=== PATIENT | male | born 1945 | race Caucasian/White ===

== ENCOUNTER 2017-01-15 15:00 | Emergency (ER) | payer MEDICARE ==
[~2017-01-15] VITALS: Ht 175.3 cm; Wt 67.1 kg
[~2017-01-15 15:00] MED LIST: ACET325T9 PO; ASPI81TA2 PO; CARV12.52 PO; DIGO125T PO; FINA5TAB4 PO; LISI-338 PO; LOVA40TA2 PO; OMEP40CA5 PO; SPIR25TA3 PO; TRAM50TA PO; WARF5TAB7 PO
[2017-01-15] MEDS ORDERED: IV NORMAL SALINE 1000ML BAG 1,000 ML IV SCH (15:38)
[2017-01-15] MEDS ORDERED: FAMOTIDINE 20 MG/2 ML VIAL IVP ONE (15:45)
[2017-01-15] MEDS ORDERED: ONDANSETRON PF 4 MG/2 ML VIAL. IV ONE (15:45)
[2017-01-15 16:10] LABS: BASO % 0 % (0-3); EOS % 3 % (0-3); HEMATOCRIT 42.2 % (39.0-53.0); HEMOGLOBIN 13.5 g/dL (13.0-17.5); LYMPH # 1.1 x10^3/uL (1.0-4.8); LYMPH % 14 % (24-48); MEAN CORPUSCULAR HEMOGLOBIN 28 pg (25-35); MEAN CORPUSCULAR HGB CONC 32 g/dL (31-37); MEAN CORPUSCULAR VOLUME 88 fL (79-100); MONO % 13 % (0-9); NEUT % 70 % (31-73); PLATELET COUNT 240 x10^3/uL (140-400); RED BLOOD COUNT 4.79 x10^6/uL (4.30-5.70); RED CELL DISTRIBUTION WIDTH 14.2 % (11.5-14.5); WHITE BLOOD COUNT 8.4 x10^3/uL (4.0-11.0)
[2017-01-15 16:20] LABS: INR 2.8 (0.8-1.1); PROTHROMBIN TIME PATIENT 27.8 SEC (11.7-14.0)
[2017-01-15 16:22] LABS: CREATININE 1.1 mg/dL (0.7-1.3); GFR 65.8; POTASSIUM 4.4 mmol/L (3.5-5.1)
[2017-01-15 16:27] LABS: ALBUMIN 3.3 g/dL (3.4-5.0); DIRECT BILIRUBIN 0.1 mg/dL (0.0-0.2); TOTAL BILIRUBIN 0.5 mg/dL (0.2-1.0); TOTAL PROTEIN 6.9 g/dL (6.4-8.2)
[2017-01-15 17:41] LABS: BILIRUBIN,URINE SMALL (NEG); GLUCOSE,URINE NEGATIVE (NEG); NITRITE,URINE NEGATIVE (NEG); PROTEIN,URINE NEGATIVE (NEG-TRACE)
[2017-01-15 17:50] LABS: BACTERIA,URINE 0 /HPF (0-FEW); SQUAMOUS EPITHELIAL CELL,UR OCC /LPF; WBC,URINE 0 /HPF (0-4)
[2017-01-15] MEDS ORDERED: ONDA4TAB10 SL (18:18)
--- NOTE | 2017-01-15 18:18 | PHYS DOC ---
Past Medical History Past Medical History: Arrhythmia, GERD, High Cholesterol, Heart Disease, Hypertension, Prostatitis Past Surgical History: Cholecystectomy, Pacemaker, Other Additional Past Surgical Histo: hernia Alcohol Use: Sober Drug Use: None Adult General Chief Complaint Chief Complaint: NAUSEA/VOMITING/DIARRHA HPI HPI Patient is a 72 year old gentleman with a history significant for cardiac myopathy, prostate cancer, hypertension, high cholesterol, status post internal hernia repair and AICD placement who presents here today complaining of nausea vomiting diarrhea for 2 days. Patient reports she's had 12 bouts of diarrhea approximately 6 bouts of vomiting per day for the last 2 days. Patient denies any diabetes liver or lung or kidney problems. Patient not smoke drink or do any drugs. Patient is not allergic to any medications. Patient has any fevers shaking chills chest pain shortness of breath. Patient has any abdominal pain however he does have some cramping when he is moving his bowels. Patient has a dysuria frequency or urgency. Patient reports decreased urinary output over the last 24 hours. Patient reports his last by mouth intake was 2 pieces of toast approximately 10 AM which he reports he had emesis shortly thereafter. Patient reports that several family members have had similar symptoms. Patient reports last week his father and brother both had identical symptoms however he reports that their symptoms lasted only for one day and then resolved his has been going on on for today so he came in for evaluation. Patient's physical exam the ER was remarkable for just the patient who appeared to be dehydrated. Patient on exam was soft nontender no rebound or guarding. Patient did not have any evidence that were consistent with an acute surgical abdomen. Patient's mucous membranes were dry and pasty. Patient's heart with regular rate without tachycardia. Patient's ER workup has been unremarkable. Patient's labs were within normal limits. While the ER the patient did receive a liter of normal saline and feels 100% improved. Moist here he's had multiple bouts of diarrhea still. Patient reports his nausea is significantly improved and he does feel like he's got an appetite currently. A/P 72-year-old gentleman with likely viral gastroneuritis. Patient is stable for discharge home. Precautions were reviewed with the patient. We will send him home with Srinivasa. Patient is instructed to follow-up with his doctor within the next 1-2 days for reevaluation. Review of Systems Review of Systems Constitutional: Denies fever or chills [] Eyes: Denies change in visual acuity, redness, or eye pain [] All other review of systems are negative except as documented in the history of present illness portion. Current Medications Current Medications Current Medications Medications (Trade) Dose Ordered Sig/Laya Start Time Stop Time Status Last Admin Dose Admin Famotidine (Pepcid) 20 mg 1X ONCE 01/15/17 15:45 01/15/17 15:46 DC 01/15/17 15:58 20 MG Ondansetron HCl (Zofran) 4 mg 1X ONCE 01/15/17 15:45 01/15/17 15:46 DC 01/15/17 15:56 4 MG Sodium Chloride (Iv Sodium Chloride 0.9% 1000ml Bag) 1,000 ml @ 1,000 mls/hr Q1H 01/15/17 15:38 01/15/17 16:37 DC 01/15/17 15:55 1,000 MLS/HR Allergies Allergies Allergies Coded Allergies Type Severity Reaction Last Updated Verified No Known Drug Allergies 03/17/16 No Physical Exam Physical Exam Constitutional: Well developed, well nourished, no acute distress, non-toxic appearance. [] HENT: Normocephalic, atraumatic, bilateral external ears normal, oropharynx moist, no oral exudates, nose normal. [] Eyes: PERRLA, EOMI, conjunctiva normal, no discharge. [] Neck: Normal range of motion, no tenderness, supple, no stridor. [] Cardiovascular:Heart rate regular rhythm, no murmur [] Lungs & Thorax: Bilateral breath sounds clear to auscultation [] Abdomen: Bowel sounds normal, soft, no tenderness, no masses, no pulsatile masses. [] Skin: Warm, dry, no erythema, no rash. [] Back: No tenderness, no CVA tenderness. [] Extremities: No tenderness, no cyanosis, no clubbing, ROM intact, no edema. [] Neurologic: Alert and oriented X 3, normal motor function, normal sensory function, no focal deficits noted. [] Psychologic: Affect normal, judgement normal, mood normal. [] Current Patient Data Vital Signs Vital Signs Date Time Temp Pulse Resp B/P Pulse Ox O2 Delivery O2 Flow Rate FiO2 01/15/17 17:30 60 117/56 94 Room Air 01/15/17 15:23 98.1 16 98.1 Lab Values Laboratory Tests Test 01/15/17 15:51 01/15/17 17:28 White Blood Count 8.4x10^3/uL (4.0-11.0) Red Blood Count 4.79x10^6/uL (4.30-5.70) Hemoglobin 13.5g/dL (13.0-17.5) Hematocrit 42.2% (39.0-53.0) Mean Corpuscular Volume 88fL (79-100) Mean Corpuscular Hemoglobin 28pg (25-35) Mean Corpuscular Hemoglobin Concent 32g/dL (31-37) Red Cell Distribution Width 14.2% (11.5-14.5) Platelet Count 240x10^3/uL (140-400) Neutrophils (%) (Auto) 70% (31-73) Lymphocytes (%) (Auto) 14% (24-48) L Monocytes (%) (Auto) 13% (0-9) H Eosinophils (%) (Auto) 3% (0-3) Basophils (%) (Auto) 0% (0-3) Neutrophils # (Auto) 5.9x10^3uL (1.8-7.7) Lymphocytes # (Auto) 1.1x10^3/uL (1.0-4.8) Monocytes # (Auto) 1.1x10^3/uL (0.0-1.1) Eosinophils # (Auto) 0.3x10^3/uL (0.0-0.7) Basophils # (Auto) 0.0x10^3/uL (0.0-0.2) Prothrombin Time 27.8SEC (11.7-14.0) H Prothrombin Time INR 2.8 (0.8-1.1) H Sodium Level 136mmol/L (136-145) Potassium Level 4.4mmol/L (3.5-5.1) Chloride Level 99mmol/L (98-107) Carbon Dioxide Level 29mmol/L (21-32) Anion Gap 8 (6-14) Blood Urea Nitrogen 29mg/dL (8-26) H Creatinine 1.1mg/dL (0.7-1.3) Estimated GFR (Cockcroft-Gault) 65.8 Glucose Level 111mg/dL (70-99) H Calcium Level 9.0mg/dL (8.5-10.1) Total Bilirubin 0.5mg/dL (0.2-1.0) Direct Bilirubin 0.1mg/dL (0.0-0.2) Aspartate Amino Transferase (AST) 39U/L (15-37) H Alanine Aminotransferase (ALT) 42U/L (16-63) Alkaline Phosphatase 66U/L (46-116) Total Protein 6.9g/dL (6.4-8.2) Albumin 3.3g/dL (3.4-5.0) L Digoxin Level 0.9ng/mL (0.9-2.0) Digoxin Last Dose Date Unk Digoxin Last Dose Time Unk Urine Collection Type Unknown Urine Color Yellow Urine Clarity Clear Urine pH 6.0 Urine Specific [place] >=1.030 Urine Protein Negativemg/dL (NEG-TRACE) Urine Glucose (UA) Negativemg/dL (NEG) Urine Ketones (Stick) 15mg/dL (NEG) Urine Blood Negative (NEG) Urine Nitrite Negative (NEG) Urine Bilirubin Small (NEG) Urine Urobilinogen Dipstick 1.0mg/dL (0.2 mg/dL) Urine Leukocyte Esterase Negative (NEG) Urine RBC 1-2/HPF (0-2) Urine WBC 0/HPF (0-4) Urine Squamous Epithelial Cells Occ/LPF Urine Bacteria 0/HPF (0-FEW) Urine Hyaline Casts Occasional/HPF Urine Mucus Marked/LPF Laboratory Tests 01/15/17 15:51 Laboratory Tests 01/15/17 15:51 EKG EKG [] Radiology/Procedures Radiology/Procedures [] EKG revealed normal sinus rhythm heart rate of 60 as interpreted by me. Course & Med Decision Making Course & Med Decision Making Pertinent Labs and Imaging studies reviewed. (See chart for details) [] Dragon Disclaimer Dragon Disclaimer This electronic medical record was generated, in whole or in part, using a voice recognition dictation system. Departure Departure Impression: Primary Impression: Dehydration Additional Impressions: Gastroenteritis Vomiting and diarrhea Disposition: HOME, SELF-CARE Condition: IMPROVED Referrals: EVE STEVENS MD (PCP) Patient Instructions: Dehydration, Adult, Viral Gastroenteritis Scripts Ondansetron (Zofran Odt)4 Mg Tab.rapdis1 Tab SL Q6HRS PRN NAUSEA #12 TAB Prov:GENEVIEVE ANDRE MD 01/15/17 Problem Qualifiers GENEVIEVE ANDRE MD Jan 15, 2017 18:18
[2017-01-15 18:30] VITALS: BP 115/62
--- NOTE | 2017-01-16 11:30 | EKG ---
[facility] [address] [place] [address] Test Date: 2017-01-15 Test Time: 15:41:41 Pat Name: MANUEL PERDUE Department: Room: Gender: M [employer]ining [employer]: : 1945 Requested By: ROSALBA CASTANO Order Number: [id number] Reading MD: Measurements Intervals [place] Rate: 60 P: AL: QRS: -46 QRSD: 128 T: -77 QT: 434 QTc: 438 Interpretive Statements IRREGULAR RHYTHM, NO P-WAVE FOUND RIGHT BUNDLE BRANCH BLOCK ABNORMAL ECG RI6.01 No previous ECG available for comparison
== END 2017-01-15 18:31 | disposition home or self-care (01) ==
LOC: ER 15:00
DX: K52.9 Noninfective gastroenteritis and colitis, unspecified (principal); E86.0 Dehydration; R19.7 Diarrhea, unspecified; R11.2 Nausea with vomiting, unspecified; E78.00 Pure hypercholesterolemia, unspecified; K21.9 Gastro-esophageal reflux disease without esophagitis; I11.9 Hypertensive heart disease without heart failure; Z95.810 Presence of automatic (implantable) cardiac defibrillator; Z85.46 Personal history of malignant neoplasm of prostate; Z90.49 Acquired absence of other specified parts of digestive tract
CPT/HCPCS: 36415; 80048; 80076; 80162; 81001; 85027; 85610; 93005; 96361; 96374; 96375; 99285; J2405; J7030; S0028

== ENCOUNTER → 2017-11-02 | Outpatient (CLI) | payer BC ==
[~2017-11-02] MED LIST changes: +ASPI-630 PO; -ASPI81TA2 PO; +ONDA4TAB10 SL
--- NOTE | 2017-11-02 15:16 | KCIC ---
Indication: Amiodarone therapy. Time of exam 300 p.m. Comparison is made with prior chest from 10/27/2016. The heart size is stable. Cardiac defibrillator remains in place. The lungs are clear. The pulmonary vascularity is normal. No infiltrates are detected. No effusion or pneumothorax is seen. IMPRESSION: Stable chest. No acute feature is detected. Electronically signed by: Jad James MD (11/02/2017 3:13 PM) [id number]
== END | disposition home or self-care (01) ==
LOC: KCIC 14:28
PROVIDERS: ATTEND Internal Medicine Cardiovascular Disease
DX: I42.8 Other cardiomyopathies (principal); Z79.899 Other long term (current) drug therapy
CPT/HCPCS: 71020

== ENCOUNTER → 2018-03-20 | Outpatient (CLI) | payer BC | END | disposition home or self-care (01) | LOC: KCIC 13:35 | DX: Z79.899 Other long term (current) drug therapy (principal) | CPT/HCPCS: 71046 ==

== ENCOUNTER → 2019-02-13 | Outpatient (CLI) | payer BC ==
[~2019-02-13] MED LIST changes: +CARV12.511 PO; -CARV12.52 PO; -SPIR25TA3 PO; +SPIR25TA5 PO; +WARF-31 PO; -WARF5TAB7 PO
--- NOTE | 2019-02-13 15:10 | KCIC ---
CHEST PA LATERAL CLINICAL INDICATION: Amiodarone monitoring. COMPARISON: 03/20/2018 FINDINGS: Stable position of left chest wall cardiac pacer with its leads projecting over the heart. Heart is normal in size. Lungs are clear. No pneumothorax or effusion. Visualized bony thorax is within normal limits. Focal eventration of right hemidiaphragm. IMPRESSION: No acute pulmonary process. Electronically signed by: Freddy Diane DO (02/13/2019 3:07 PM) [facility]
== END | disposition home or self-care (01) ==
LOC: KCIC 13:08
PROVIDERS: ATTEND Internal Medicine Cardiovascular Disease
DX: Z51.81 Encounter for therapeutic drug level monitoring (principal); Z79.899 Other long term (current) drug therapy
CPT/HCPCS: 71046

== ENCOUNTER → 2019-04-12 | Outpatient (CLI) | payer BC ==
--- NOTE | 2019-04-12 09:50 | KCIC ---
Two-view right hip dated 04/12/2019. No comparison available. CLINICAL INDICATION: Right hip pain for one month. No known injury. FINDINGS: 2 views right hip show normal bony alignment. No displaced fracture. No acute osseous or articular abnormality. Mild hypertrophic change of the right hip joint. Mild degenerative change of the right SI joint. IMPRESSION: No acute radiographic abnormality. Mild degenerative changes as described. Electronically signed by: William Smith MD (04/12/2019 9:47 AM) [facility][id number]
== END | disposition home or self-care (01) ==
LOC: KCIC 08:21
PROVIDERS: ATTEND Family Medicine
DX: M16.11 Unilateral primary osteoarthritis, right hip (principal); M89.38 Hypertrophy of bone, other site
CPT/HCPCS: 73502

== ENCOUNTER → 2019-12-25 | Outpatient (CLI) | payer BC ==
[~2019-12-25] MED LIST changes: -DIGO125T PO; +DIGO125T3 PO; +OMEP40CA45 PO; -OMEP40CA5 PO
--- NOTE | 2019-12-25 08:51 | KCIC ---
EXAM: Chest, 2 views HISTORY: Pleuritic chest pain. COMPARISON: 02/13/2019 FINDINGS: 2 views of the chest are obtained. There is no infiltrate, pleural effusion or pneumothorax. The heart is normal in size. There is incidental slight eventration the right hemidiaphragm and interposition of the colon superior to the liver, the latter of which is a normal variant. There is a cardiac pacemaker with leads in expected position. There is hyperinflation due to inspiratory effort or emphysema. IMPRESSION: No acute pulmonary finding. Electronically signed by: Emily Hand MD (12/25/2019 8:47 AM) [facility]
== END | disposition home or self-care (01) ==
LOC: KCIC 08:16
PROVIDERS: ATTEND Family Medicine
DX: R07.81 Pleurodynia (principal); Z95.0 Presence of cardiac pacemaker
CPT/HCPCS: 71046

== ENCOUNTER → 2020-09-10 | Outpatient (CLI) | payer BC ==
[~2020-09-10] MED LIST changes: +IOHEXOL 240 MG/ML 50ML VIAL. PO ONE; +IOHEXOL 300 MG/ML 100ML VIAL. IV ONE
--- NOTE | 2020-09-10 17:50 | KCIC ---
CT scan abdomen and pelvis with contrast 09/10/2020 CLINICAL HISTORY: Anemia. Vomiting. Blood in stools. TECHNIQUE: After the oral and intravenous ministration contrast, contiguous, 5 mm axial sections were obtained through abdomen and pelvis. 84 cc of Omnipaque 300 were administered intravenously during this examination. One or more of the following individualized dose reduction techniques were utilized for this study: 1. Automated exposure control. 2. Adjustment of the mA and/or kV according to patient size. 3. Use of iterative reconstruction technique. FINDINGS: Images through the lung bases demonstrate minimal dependent subsegmental atelectasis bilaterally. There is mild cardiomegaly. The liver, spleen, pancreas, adrenal glands and kidneys are within normal limits. Atherosclerotic calcification of the abdominal aorta is seen. The abdominal aorta tapers normally. Surgical clips are seen within the gallbladder fossa consistent with a cholecystectomy. No free fluid or free air is within abdomen. Air and stool are seen throughout the colon. There is no evidence of bowel obstruction. Images through the pelvis demonstrate the urinary bladder distended with urine. The prostate gland is enlarged likely related to BPH. A small amount of free fluid is seen within the pelvis. The patient is post left lateral fusion using pedicle screws and a stabilizing rods at L4-5. Degenerative changes are seen involving the lower thoracic and throughout the lumbar spine. Mild S-shaped curvature of the thoracolumbar spine is seen. Degenerative changes are seen involving both SI joints and both hips. IMPRESSION: Small amount of free fluid is seen within the pelvis. No additional acute abnormality is seen. Electronically signed by: Rangel Jorge MD (09/10/2020 5:47 PM) [id number]
== END ==
LOC: KCIC CT 12:59
PROVIDERS: ATTEND Internal Medicine Gastroenterology
DX: I70.0 Atherosclerosis of aorta (principal); D64.9 Anemia, unspecified; I51.7 Cardiomegaly; K92.1 Melena
CPT/HCPCS: 74177; 82565; Q9966; Q9967

== ENCOUNTER → 2020-09-15 | Outpatient (CLI) | payer BC ==
[~2020-09-15] MED LIST changes: -IOHEXOL 240 MG/ML 50ML VIAL. PO ONE; -IOHEXOL 300 MG/ML 100ML VIAL. IV ONE
== END ==
LOC: LAB 13:21
PROVIDERS: ATTEND Internal Medicine Gastroenterology
DX: Z01.812 Encounter for preprocedural laboratory examination (principal); Z20.828 Contact with and (suspected) exposure to other viral communicable diseases; D64.9 Anemia, unspecified
CPT/HCPCS: U0003-CS

== ENCOUNTER → 2022-02-10 | Outpatient (CLI) | payer BC ==
[~2022-02-10] MED LIST changes: -LISI-338 PO; +LISI5TAB15 PO; -OMEP40CA45 PO; +OMEP40CA7 PO
--- NOTE | 2022-02-10 13:49 | KCIC ---
EXAM: Left knee, 3 views. HISTORY: Pain. COMPARISON: None. FINDINGS: 3 views of the left knee are obtained. There is moderate to severe lateral compartment join t space narrowing. There is moderate lateral compartment predominant tricompartmental spurring. There is a small joint effusion. There are vascular calcifications. IMPRESSION: Moderate to severe lateral compartment and moderate medial and patellofemoral compartment osteoarthritis of the left knee with small joint effusion. Electronically signed by: Emily Hand MD (02/10/2022 1:47 PM) [id number]
== END ==
LOC: KCIC 13:12
PROVIDERS: ATTEND Family Medicine
DX: M17.12 Unilateral primary osteoarthritis, left knee (principal); M25.462 Effusion, left knee; M76.892 Other specified enthesopathies of left lower limb, excluding foot; M25.862 Other specified joint disorders, left knee
CPT/HCPCS: 73562

== ENCOUNTER → 2022-02-10 | Outpatient (CLI) | payer BC ==
--- NOTE | 2022-02-10 13:50 | KCIC ---
EXAM: Chest, 2 views. HISTORY: Amiodarone use. COMPARISON: 12/25/2019 FINDINGS: 2 views of the chest are obtained. There is stable eventration of the right hemidiaphragm w ith underlying bowel loops. There is no infiltrate, pleural effusion or pneumothorax. There is basila r atelectasis. The heart is normal in size. There is a cardiac pacemaker in expected position. IMPRESSION: No acute pulmonary finding. Electronically signed by: Emily Hand MD (02/10/2022 1:48 PM) [id number]
== END ==
LOC: KCIC 13:21
PROVIDERS: ATTEND Internal Medicine Cardiovascular Disease
DX: J98.11 Atelectasis (principal); Z79.899 Other long term (current) drug therapy; Z95.0 Presence of cardiac pacemaker
CPT/HCPCS: 71046